=== PATIENT | male | born 1950 | race Native Hawaiian/Other Pacific Islander ===

== ENCOUNTER 2016-10-27 07:57 | Day surgery (SDC) | payer OTHER ==
[~2016-10-27 07:57] MED LIST: ASPIRIN325 M2 PO; HYDR10TA51 PO
== END 2016-10-27 10:15 | disposition home or self-care (01) ==
LOC: OR 07:57
PROC: 08RJ3JZ Replacement of Right Lens with Synthetic Substitute, Percutaneous Approach (ICD-10-PCS; principal; 2016-10-27)
DX: H25.811 Combined forms of age-related cataract, right eye (principal)
CPT/HCPCS: 66984; V2632

== ENCOUNTER 2017-05-13 11:55 | Outpatient (CLI) | payer OTHER | END 2017-05-13 12:03 | disposition short-term general hospital (02) | LOC: AMB 11:55 | DX: R41.82 Altered mental status, unspecified (principal); R47.01 Aphasia; G25.2 Other specified forms of tremor | CPT/HCPCS: A0425; A0427 ==

== ENCOUNTER 2017-05-13 12:00 | Emergency (ER) | payer OTHER ==
[~2017-05-13] VITALS: Ht 167.6 cm; Wt 61.2 kg
[2017-05-13 12:37] LABS: PLATELET COUNT 335 K/uL (142-355)
[2017-05-13 12:53] LABS: PARTIAL THROMBOPLASTIN TIME 28.8 SECONDS (24.5-33.6)
[2017-05-13 12:59] LABS: POTASSIUM 3.6 mmol/L (3.6-5.2)
[2017-05-13 15:45] VITALS: BP 161/83; TEMP 101
== END 2017-05-13 15:45 | disposition short-term general hospital (02) ==
LOC: ED 12:00
PROVIDERS: Emergency Medicine
DX: A41.9 Sepsis, unspecified organism (principal)
CPT/HCPCS: 36415; 80053; 80307; 80320; 81000; 82550; 83605; 84484; 85027; 85610; 85730; 87040; 87088; 93005; 96361; 96365; 96366; 99284; G0479; J2543; J3370

== ENCOUNTER 2017-10-08 15:55 | Emergency (ER) | payer OTHER ==
[~2017-10-08] VITALS: Ht 167.6 cm; Wt 65.8 kg
[2017-10-08 16:10] VITALS: TEMP 99.9
[2017-10-08 17:08] LABS: PLATELET COUNT 198 K/uL (142-355)
[2017-10-08 17:42] LABS: POTASSIUM 4.8 mmol/L (3.6-5.2)
[2017-10-08 20:46] VITALS: BP 126/56
== END 2017-10-08 21:55 | disposition home or self-care (01) ==
LOC: ED 15:55
PROVIDERS: Specialist
DX: I63.9 Cerebral infarction, unspecified (principal); N18.6 End stage renal disease
CPT/HCPCS: 36415; 80053; 82550; 82553; 83735; 84100; 84484; 85027; 93005; 99283